=== PATIENT | female | born 2000 | race Hispanic/Latino ===

== ENCOUNTER 2018-09-17 01:01 | Emergency (ER) | payer OTHER ==
[~2018-09-17] VITALS: Ht 170.2 cm; Wt 65.9 kg
[2018-09-17 08:24] LABS: INFLUENZA A AMPLIFICATION NEGATIVE (NEGATIVE); INFLUENZA B AMPLIFICATION NEGATIVE (NEGATIVE)
[2018-09-17] MEDS ORDERED: FLON1SPR NARES ×2 (08:29→08:30)
[2018-09-17] MEDS ORDERED: ALL10TAB28 PO ×2 (08:29→08:30)
[2018-09-17] MEDS ORDERED: MAGICMW SSP (08:30)
[2018-09-17 08:42] VITALS: BP 112/72
--- NOTE | 2018-09-17 09:29 | REP ---
CHEST, TWO VIEWS: There is no evidence of acute infiltrate. No pleural effusion is seen. The heart is normal in size. The mediastinal silhouette is unremarkable. The visualized osseous structures are intact. IMPRESSION: No acute pulmonary disease. Unreviewed
== END 2018-09-17 08:44 | disposition home or self-care (01) ==
LOC: M ED 01:01
DX: J06.9 Acute upper respiratory infection, unspecified (principal)

== ENCOUNTER 2018-11-29 22:04 | Emergency (ER) | payer OTHER ==
[~2018-11-29] VITALS: Ht 170.2 cm; Wt 65.9 kg
[2018-11-29 22:04] VITALS: BP 120/73
[~2018-11-29 22:04] MED LIST: ALL10TAB28 PO; FLON1SPR NARES; MAGICMW SSP
== END 2018-11-29 22:09 | disposition left against medical advice (07) ==
LOC: M ED 22:04
DX: L98.8 Other specified disorders of the skin and subcutaneous tissue (principal); Z53.21 Procedure and treatment not carried out due to patient leaving prior to being seen by health care provider